=== PATIENT | male | born 1985 | race American Indian/Alaskan Native ===

== ENCOUNTER 2018-09-06 10:25 | Emergency (ER) | payer MEDICAID, OTHER ==
[2018-09-06 10:41] VITALS: BP 135/81
[2018-09-06] MEDS ORDERED: Penicillin V Potassium 250 MG Tab PO ONE (10:48)
[2018-09-06] MEDS ORDERED: Acetaminophen/HYDROcodone 325-5 MG Tab PO ONE (10:48)
--- NOTE | 2018-09-06 10:58 | EDM.PDOC ---
ED HPI GENERAL MEDICAL PROBLEM - General Chief Complaint: ENT Problem Stated Complaint: RIGHT SIDE OF FACE SWOLLEN Time Seen by Provider: 09/06/18 10:45 Source of Information: Reports: Patient History Limitations: Reports: No Limitations - History of Present Illness INITIAL COMMENTS - FREE TEXT/NARRATIVE: 33 yo NA male presents with bilateral facial swelling and dental pain. Denies fever. Has been swishing with H2O2. Onset: Gradual Duration: Day(s):, Getting Worse Location: Reports: Face Quality: Reports: Ache, Pressure Severity: Moderate Improves with: Reports: Medication Worsens with: Reports: Other (time, chewing) Context: Reports: Other (see HPI, chronic dental neglect) Associated Symptoms: Reports: No Other Symptoms. 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: Reports: Other (see below) (none) Tooth/Teeth Pain Score (Numeric/FACES): 5 - Related Data Allergies Allergy/AdvReac Type Severity Reaction Status Date / Time No Known Allergies Allergy Verified 09/06/18 10:35 Home Meds: Home Meds Acetaminophen/HYDROcodone [[place] 325-5 MG] 1 - 2 tab PO Q6H PRN #14 tab [Rx] Penicillin V Potassium [Veetids] 500 mg PO Q6H #40 tab 09/06/18 [Rx] Past Medical History Musculoskeletal History: Reports: Other (See Below) Other Musculoskeletal History: FX jaw repair - Infectious Disease History Infectious Disease History: Reports: Chicken Pox Social & Family History - Tobacco Use Smoking Status *Q: Current Every Day Smoker Years of Tobacco use: 15 Packs/Tins Daily: 1 Used Tobacco, but Quit: No Second Hand Smoke Exposure: Yes - Caffeine Use Caffeine Use: Reports: Coffee, Energy Drinks, Soda - Alcohol Use Days Per Week of Alcohol Use: 0 - Recreational Drug Use Recreational Drug Use: No ED ROS ENT - Review of Systems Review Of Systems: See Below Constitutional: Reports: No Symptoms HEENT: Reports: Dental Pain, Other (facial swelling) Respiratory: Reports: No Symptoms Cardiovascular: Reports: No Symptoms Endocrine: Reports: No Symptoms GI/Abdominal: Reports: No Symptoms : Reports: No Symptoms Skin: Reports: No Symptoms Neurological: Reports: No Symptoms ED EXAM, ENT - Physical Exam Exam: See Below Exam Limited By: No Limitations General Appearance: Alert, WD/WN, No Apparent Distress Eye Exam: Bilateral Eye: Normal Inspection Ears: Normal External Exam, Normal Canal, Hearing Grossly Normal Nose: Normal Inspection, No Blood Mouth/Throat: Normal Lips, Normal Oropharynx, Dental Abcess, Dental Pain, Dental Tenderness, Other (extensive dental decay). No: Normal Inspection, Normal Gums, Normal Teeth, Bleeding, Hoarse Voice, Lip Swelling, Muffled Voice, Throat Swelling, Tongue Swelling Head: Atraumatic, Normocephalic, Facial Swelling (both cheeks swollen R>L), Facial Tenderness Respiratory/Chest: No Respiratory Distress, Lungs Clear, Normal Breath Sounds, No Accessory Muscle Use Cardiovascular: Regular Rate, Rhythm, No Edema Extremities: Normal Inspection, Normal Range of Motion, Non-Tender, No Pedal Edema Neurological: Alert, Oriented, CN II-XII Intact, Normal Cognition, No Motor/ Sensory Deficits Psychiatric: Normal Affect, Normal Mood Skin: Warm, Dry, Intact, Normal Color, No Rash Course - Vital Signs Last Recorded V/S: Last Vital Signs Temp 36.8 C 09/06/18 10:40 Pulse 84 09/06/18 10:40 Resp 16 09/06/18 10:40 BP 135/81 09/06/18 10:40 Pulse Ox 99 09/06/18 10:40 - Orders/Labs/Meds Meds: Medications Discontinued Medications Generic Name Dose Route Start Last Admin Trade Name Freq PRN Reason Stop Dose Admin Hydrocodone Bitart/Acetaminophen 1 tab 09/06/18 10:48 [place] 325-5 Mg PO 09/06/18 10:49 ONETIME ONE Penicillin V Potassium 1,000 mg 09/06/18 10:48 Veetids PO 09/06/18 10:49 ONETIME ONE Departure - Departure Time of Disposition: 10:55 Disposition: Home, Self-Care 01 Condition: Fair Clinical Impression: Dental abscess - Discharge Information *PRESCRIPTION DRUG MONITORING PROGRAM REVIEWED*: No *COPY OF PRESCRIPTION DRUG MONITORING REPORT IN PATIENT ZEKE: No Prescriptions: Acetaminophen/HYDROcodone [[place] 325-5 MG] 1 - 2 tab PO Q6H PRN #14 tab PRN Reason: Pain Penicillin V Potassium [Veetids] 500 mg PO Q6H #40 tab Referrals: PCP,None [Primary Care Provider] - Additional Instructions: Take Penicillin every 6 hrs as directed. Take ibuprofen 600 mg every 6 hrs for pain relief. Add acetaminophen 1000 mg every 6 hrs for additional pain relief. If you need further pain relief beyond this, then substitute [place] for acetaminophen. See your dentist [facility] for definitive dental care. See your family doctor in the interim if needed.
== END 2018-09-06 11:03 | disposition home or self-care (01) ==
LOC: JP.ED 10:25
DX: K04.7 Periapical abscess without sinus (principal); K02.9 Dental caries, unspecified; F17.210 Nicotine dependence, cigarettes, uncomplicated
CPT/HCPCS: 99283; A9270

== ENCOUNTER 2020-12-06 21:11 | Emergency (ER) | payer MEDICAID, OTHER ==
[2020-12-06 21:47] VITALS: BP 118/73; PULSE 78
[2020-12-06] MEDS ORDERED: Ketorolac 30 MG/ML SDV IM ONE (22:19)
--- NOTE | 2020-12-06 23:10 | EDM.PDOC ---
ED HPI GENERAL MEDICAL PROBLEM - General Chief Complaint: Flank Pain Stated Complaint: RT SIDE RIB PAIN Time Seen by Provider: 12/06/20 22:00 Source of Information: Reports: Patient History Limitations: Reports: No Limitations - History of Present Illness INITIAL COMMENTS - FREE TEXT/NARRATIVE: 35-year-old male has been coughing for the past couple of days, especially in his sleep. Today he developed a very sharp pain in the right anterior chest. It is especially painful when coughing. He really has no shortness of breath, no fever, no rash, denies sore throat or other symptoms. Onset: Gradual Duration: Day(s): (Sharp pains have been present for the last day or 2) Location: Reports: Chest (Very localized to the right anterior chest) Right Lower Chest Pain Score (Numeric/FACES): 8 - Related Data Allergies Allergy/AdvReac Type Severity Reaction Status Date / Time No Known Allergies Allergy Verified 12/06/20 22:10 Home Meds: Home Meds NK [No Known Home Meds] 12/06/20 [History] Past Medical History Musculoskeletal History: Reports: Other (See Below) Other Musculoskeletal History: FX jaw repair - Infectious Disease History Infectious Disease History: Reports: Chicken Pox Social & Family History - Family History Family Medical History: No Pertinent Family History - Tobacco Use Tobacco Use Status *Q: Current Every Day Tobacco User Years of Tobacco use: 15 Packs/Tins Daily: 1 - Caffeine Use Caffeine Use: Reports: Coffee - Recreational Drug Use Recreational Drug Use: Yes Recreational Drug Type: Reports: Marijuana/Hashish Recreational Drug Use Frequency: Weekly ED ROS GENERAL - Review of Systems Review Of Systems: See Below Constitutional: Denies: Fever, Chills Respiratory: Reports: Cough. Denies: Shortness of Breath, Sputum Cardiovascular: Reports: Chest Pain GI/Abdominal: Denies: Abdominal Pain, Nausea, Vomiting Skin: Denies: Bruising, Erythema Neurological: Reports: No Symptoms ED EXAM, GENERAL - Physical Exam Exam: See Below Exam Limited By: No Limitations General Appearance: Alert, No Apparent Distress, Other (Looks uncomfortable when coughing) Eye Exam: Bilateral Eye: Normal Inspection Head: Atraumatic Neck: Supple, Non-Tender Respiratory/Chest: No Respiratory Distress, Lungs Clear, Other (Patient does have a very localized tender spot just below the nipple on the right chest, likely over the costochondral area.) Cardiovascular: Regular Rate, Rhythm. No: Tachycardia GI/Abdominal: Soft, Non-Tender Neurological: Alert, Oriented Psychiatric: Anxious (Acting somewhat hyper dramatic) Skin Exam: Warm, Dry Course - Vital Signs Last Recorded V/S: Last Vital Signs Temp 97.7 F 12/06/20 22:11 Pulse 78 12/06/20 22:11 Resp 16 12/06/20 22:11 BP 118/73 12/06/20 22:11 Pulse Ox 95 12/06/20 22:11 - Orders/Labs/Meds Orders: Active Orders 24 hr Category Date Time Status Chest 2V [CR] Routine Exams 12/06/20 22:20 Taken Meds: Medications Discontinued Medications Generic Name Dose Route Start Last Admin Trade Name Tabatha PRN Reason Stop Dose Admin Ketorolac Tromethamine 30 mg 12/06/20 22:19 12/06/20 22:24 Ketorolac 30 Mg/Ml Sdv IM 12/06/20 22:20 30 mg ONETIME ONE Administration - Re-Assessments/Exams Free Text/Narrative Re-Assessment/Exam: 12/06/20 23:08 Patient was given 30 mg of IM Toradol which was beneficial, along with a 2 view chest x-ray which looks normal. He may have a costochondral strain but no underlying infiltrate needing antibiotic treatment. He will be discharged with 10 additional doses of Toradol to use every 8 hours through the rest of the weekend. Departure - Departure Time of Disposition: 23:27 Disposition: Home, Self-Care 01 Clinical Impression: Acute costochondritis - Discharge Information Instructions: Costochondritis, [id number] Referrals: PCP,None [Primary Care Provider] - Forms: ED Department Discharge Care Plan Goals: Take 2 cough pills every 8 hours to suppress your cough, and 1 pain pill every 6 hours for the next 2 to 3 days. Increase activity as tolerated, and consider rechecking in 2 to 3 days if not improving. Return sooner if worsening such as fever or shortness of breath. Sepsis Event Note (ED) - Focused Exam Vital Signs: Vital Signs Temp Pulse Resp BP Pulse Ox 12/06/20 22:11 97.7 F 78 16 118/73 95 12/06/20 21:46 97.7 F 78 16 118/73 95 - My Orders Last 24 Hours: My Active Orders 12/06/20 22:20 Chest 2V [CR] Routine - Assessment/Plan Last 24 Hours: My Active Orders 12/06/20 22:20 Chest 2V [CR] Routine
--- NOTE | 2020-12-08 12:33 | CR ---
CHEST: 2 view CLINICAL HISTORY:Dyspnea COMPARISON:None FINDINGS: The heart size, pulmonary vascularity and hilar structures are normal. No infiltrate effusion or pneumothorax is seen. IMPRESSION: No acute cardiopulmonary process .
== END 2020-12-06 23:28 | disposition home or self-care (01) ==
LOC: JP.ED 21:11
DX: M94.0 Chondrocostal junction syndrome [Tietze] (principal); Z72.0 Tobacco use
CPT/HCPCS: 71046; 96372; 99283; J1885